=== PATIENT | female | born 1985 ===

== ENCOUNTER 2024-07-11 13:16 | Emergency (ER) | payer SELFPAY ==
[2024-07-11 13:18] VITALS: PULSE 118; RESP 18; BMI 41.5
--- NOTE | 2024-07-11 13:44 | PC.NURSE ---
PT did not answer when name was called from lobby and was not found outside. Security stated they seen pt leave.
== END 2024-07-11 15:44 | disposition left against medical advice (07) ==
PROVIDERS: Emergency Provider Emergency Medicine
DX: Z53.21 Procedure and treatment not carried out due to patient leaving prior to being seen by health care provider (principal)